=== PATIENT | female | born 1930 | race Caucasian/White ===

== ENCOUNTER 2016-10-12 19:42 | Inpatient (IN) | payer OTHER ==
--- NOTE | 2016-10-12 19:51 | EDPHY ---
H & P Stated Complaint: Partial list of the Differential diagnosis considered include but were not Time Seen by Provider: 10/12/16 19:42 HPI/ROS: CHIEF COMPLAINT: Fall HISTORY OF PRESENT ILLNESS: The patient is an 86-year-old female who fell down the stairs at her home today. This happened around 3:00 p.m. and her roommate and power of environmental attorney helped her back up the stairs to her room. The patient began complaining of right elbow shoulder and arm pain and they decided to call an ambulance. She denies head injury or neck injury. She does take Coumadin for history of atrial fibrillation. She also has a history of dementia. She denies having any pain other than her right arm and some in her right knee. She has been ambulatory. she did not lose consciousness. No visible head injury. REVIEW OF SYSTEMS: Constitutional: denies: chills, fever, recent illness, recent injury EENTM: denies: blurred vision, double vision, nose congestion Respiratory: denies: cough, shortness of breath Cardiac: denies: chest pain, irregular heart rate, lightheadedness, palpitations Gastrointestinal/Abdominal: denies: abdominal pain, diarrhea, nausea, vomiting, blood streaked stools Genitourinary: denies: dysuria, frequency, hematuria, pain Musculoskeletal: See HPI Skin: denies: lesions, rash, jaundice, bruising Neurological: denies: headache, numbness, paresthesia, tingling, dizziness, weakness Hematologic/Lymphatic: denies: blood clots, easy bleeding, easy bruising Immunologic/allergic: denies: HIV/AIDS, transplant EXAM: GENERAL: Well-appearing, well-nourished and in no acute distress. HEAD: Atraumatic, normocephalic. EYES: Pupils equal round and reactive to light, extraocular movements intact, sclera anicteric, conjunctiva are normal. ENT: TMs normal, nares patent, oropharynx clear without exudates. Moist mucous membranes. NECK: Normal range of motion, supple without lymphadenopathy or JVD. No midline tenderness LUNGS: Breath sounds clear to auscultation bilaterally and equal. No wheezes rales or rhonchi. HEART: Regular rate and rhythm without murmurs, rubs or gallops. ABDOMEN: Soft, nontender, normoactive bowel sounds. No guarding, no rebound. No masses appreciated. BACK: No CVA tenderness, no spinal tenderness, step-offs or deformities EXTREMITIES: Right arm with bruising over shoulder and wrist. No obvious deformity. NEUROLOGICAL: Cranial nerves II through XII grossly intact. Normal speech, normal gait. 5/5 strength, normal movement in all extremities, normal sensation PSYCH: Normal mood, normal affect. SKIN: Warm, dry, normal turgor, no visible rashes or lesions. Source: Patient, EMS, Old records Exam Limitations: Clinical condition - Personal History Tetanus Vaccine Date: < 10 YEARS - Medical/Surgical History Hx Asthma: No Hx Chronic Respiratory Disease: No Hx Diabetes: No Hx Cardiac Disease: Yes Hx Renal Disease: No Hx Cirrhosis: No Hx Alcoholism: No Hx HIV/AIDS: No Hx Splenectomy or Spleen Trauma: No Other PMH: hx heart attack, pacer, dementia and on namenda - Family History Significant Family History: Hypertension - Social History Smoking Status: Former smoker Alcohol Use: Sober Drug Use: None Constitutional: Initial Vital Signs Temperature (C) 37.2 C 10/12/16 19:50 Heart Rate 78 10/12/16 19:50 Respiratory Rate 15 10/12/16 19:50 Blood Pressure 118/78 10/12/16 19:50 O2 Sat (%) 94 10/12/16 19:50 O2 Delivery Mode Room Air Allergies/Adverse Reactions: No Known Allergies Allergy (Verified 10/12/16 19:53) Home Medications: Medication Instructions Recorded Cholecalciferol Vit D3 [Vitamin D3 1,000 units PO DAILY 11/01/12 (*)] Warfarin Sodium [Coumadin 5MG (*)] 2.5 mg PO WESA@18 11/01/12 Warfarin Sodium [Coumadin 5MG (*)] 5 mg PO SUMOTUTHFR@18 11/01/12 Memantine HCl [Namenda 5 mg (*)] 10 mg PO DAILY 08/07/15 Multivitamins [Multivitamin (*)] 1 each PO DAILY 08/07/15 Donepezil HCl [Aricept] 10 mg PO HS 02/21/16 Medical Decision Making - Diagnostics Imaging: X-ray: Right arm x-rays was obtained. I viewed the images myself on the PACS system. My interpretation of the images is: Positive for clavicle fracture and displaced distal ulnar fracture. The radiologist interpretation is pending. Results: CT scan of the head was obtained. The results of the study are negative. The study was read by Dr. Giang. I viewed the images myself on the PACS system. X-ray: Right knee and hip x-ray was obtained. I viewed the images myself on the PACS system. My interpretation of the images is: Negative. The radiologist interpretation is pending. Procedures: Procedure: Splint placement. A sugar-tong splint was applied. After application of the splint I returned and re-examined the patient. The splint was adequately immobilizing the joint and distal to the splint the patient's circulation and sensation was intact. Procedure: Splint placement. A sling splint was applied. After application of the splint I returned and re- examined the patient. The splint was adequately immobilizing the joint and distal to the splint the patient's circulation and sensation was intact. ED Course/Re-evaluation: 8:35 p.m. the patient has a clavicle fracture on the right and right ulnar fracture that may require repair. We will admit her to the trauma service. I spoke with Dr. Calhoun who will admit. There is also some concern about her living situation and being safe. Also she cannot ambulate because she uses a walker for ambulation. 9:25 p.m. I discussed the case with Dr. Guillermina MILLER who will review the images and consult during the admission. 9:35 p.m. Orthopedics called back and requested sugar-tong for the wrist. They will consult tomorrow. We also concern for possible syncopal event. The patient is unsure. EKG is been ordered by Dr. Calhoun. He will also consult hospitalist. Differential Diagnosis: Partial list of the Differential diagnosis considered include but were not limited to; clavicle fracture, wrist fracture, humerus fracture, head injury and although unlikely based on the history and physical exam, I also considered neck injury, thoracic injury, knee injury, hip injury. - Data Points Laboratory Results: Laboratory Results 10/12/16 19:46 10/12/16 19:46 Medications Given: Discontinued Medications Influenza Virus Vaccine (Fluzone High-Dose ) 0.5 ml IM .ONCE ONE Stop: 10/13/16 08:34 Last Admin: 10/13/16 11:04 Dose: 0.5 ml Departure - Departure Disposition: [facility] [place] Acute Clinical Impression: Clavicle fracture Qualifiers: Encounter type: initial encounter Clavicle location: lateral end Fracture type : closed Fracture alignment: displaced Laterality: right Qualified Code(s): S42.031A - Displaced fracture of lateral end of right clavicle, initial encounter for closed fracture Distal end of ulna fracture, closed Qualifiers: Encounter type: initial encounter Fracture morphology: unspecified fracture morphology Laterality: right Qualified Code(s): S52.601A - Unspecified fracture of lower end of right ulna, initial encounter for closed fracture Condition: Fair
[2016-10-12 19:57] LABS: % IMMATURE GRANULYOCYTES 0.9 % (0.0-1.1); ABSOLUTE IMMATURE GRANULOCYTES 0.12 10^3/uL (0.00-0.10); ADD DIFF? NO; ADD MORPH? NO; ADD SCAN? NO; ATYPICAL LYMPHOCYTE FLAG 0 (0-99); FRAGMENT RBC FLAG 0 (0-99); HEMATOCRIT 45.6 % (38.0-47.0); HEMOGLOBIN 15.6 g/dL (12.6-16.3); LEFT SHIFT FLG 10 (0-99); LIPEMIA HEMOLYSIS FLAG 90 (0-99); MEAN CELL HEMOGLOBIN 33.8 pg (27.9-34.1); MEAN CELL HEMOGLOBIN CONCENTR. 34.2 g/dL (32.4-36.7); MEAN CELL VOLUME 98.7 fL (81.5-99.8); MEAN PLATELET VOLUME 9.9 fL (8.7-11.7); PLATELET CLUMPS FLAG 10 (0-99); PLATELET COUNT 258 10^3/uL (150-400); RED BLOOD CELL COUNT 4.62 10^6/uL (4.18-5.33); RED CELL DISTRIBUTION WIDTH 12.8 % (11.5-15.2)
[2016-10-12 20:08] LABS: INR 2.38 (0.83-1.16); PROTIME(PATIENT) 26.2 SEC (12.0-15.0)
[2016-10-12 20:09] LABS: APTT 27.6 SEC (23.0-38.0)
[2016-10-12 20:12] LABS: ANION GAP 11 mEq/L (8-16); CARBON DIOXIDE 26 mEq/l (22-31); CHLORIDE 102 mEq/L (97-110); CREATININE 0.8 mg/dL (0.6-1.0); GLOMERULAR FILTRATION RATE > 60; GLUCOSE 143 mg/dL (70-100); POTASSIUM 4.3 mEq/L (3.5-5.2); SODIUM 139 mEq/L (134-144)
[2016-10-12] MEDS ORDERED: ONDANSETRON 4 MG/2 ML VIAL IVP PRN (20:59)
[2016-10-12] MEDS ORDERED: LR 1,000 ML IV SCH (21:00)
--- NOTE | 2016-10-12 21:06 | PDGENHP ---
History and Physical - Chief Complaint right elbow pain - History of Present Illness 86 y/o female unwitnessed fall from stairs at home. She has no memory prior to or subsequent to the fall, but denies LOC History Information - Allergies/Home Medication List Allergies/Adverse Reactions: No Known Allergies Allergy (Verified 10/12/16 19:53) Home Medications: Cholecalciferol Vit D3 [Vitamin D3 (*)] 1,000 units PO DAILY 11/01/12 [Last Taken 10/11/16] Warfarin Sodium [Coumadin 5MG (*)] 2.5 mg PO WESA@18 11/01/12 [Last Taken ] Warfarin Sodium [Coumadin 5MG (*)] 5 mg PO SUMOTUTHFR@11/01/12 [Last Taken ] Memantine HCl [Namenda 5 mg (*)] 10 mg PO DAILY 08/07/15 [Last Taken 10/11/16] Multivitamins [Multivitamin (*)] 1 each PO DAILY 08/07/15 [Last Taken 10/11/16] Donepezil HCl [Aricept] 10 mg PO HS 02/21/16 [Last Taken 10/11/16] I have personally reviewed and updated: medical history, social history, surgical history - Past Medical History atrial fibrillation - Surgical History Reports: pacemaker/AICD - Social History Smoking Status: Never smoked Alcohol Use: Sober Drug Use: None Review of Systems Constitutional: Reports: recent injury Cardiac: Reports: no symptoms Respiratory: Reports: no symptoms Gastrointestinal: Reports: no symptoms Genitourinary: Reports: no symptoms Muscolosketal: Reports: joint pain Neurological: Reports: other (memory loss/denies visual disturbances/ [place]/ hearing loss-prior syncopal episode/does not remember tripping prior to fall) Physical Exam Temp Pulse Resp BP Pulse Ox 37.2 C 74 16 117/69 94 10/12/16 19:50 10/12/16 20:33 10/12/16 20:33 10/12/16 20:33 10/12/16 20:33 Constitutional: other (mild distress) Eyes: PERRL, EOMI Ears, Nose, Mouth, Throat: ears appear normal Cardiovascular: irregularly irregular, other (Left subclavian pacemaker) Peripheral Pulses: 1+: dorsalis-pedis (R), dorsalis-pedis (L), 4+: carotid (R), carotid (L), femoral (R), femoral (L) Respiratory: no respiratory distress, no rales or rhonchi, clear to auscultation Gastrointestinal: soft, non-tender abdomen Skin: warm, normal color Musculoskeletal: joint tenderness, other (tender right elbow without deformity/ tenderness with swell over right distal ulnar/radial pulse +2/ulnar +1) Neurologic: sensation intact bilaterally, CN II-XII Intact, other (oriented to place and situation/unable to recite correct date) Psychiatric: interacting appropriately, not anxious, poor memory Lab Data & Imaging Review 10/12/16 19:46 10/12/16 19:46 WBC 14.00 10^3/uL (3.80-9.50) H 10/12/16 19:46 RBC 4.62 10^6/uL (4.18-5.33) 10/12/16 19:46 Hgb 15.6 g/dL (12.6-16.3) 10/12/16 19:46 Hct 45.6 % (38.0-47.0) 10/12/16 19:46 MCV 98.7 fL (81.5-99.8) 10/12/16 19:46 MCH 33.8 pg (27.9-34.1) 10/12/16 19:46 MCHC 34.2 g/dL (32.4-36.7) 10/12/16 19:46 RDW 12.8 % (11.5-15.2) 10/12/16 19:46 Plt Count 258 10^3/uL (150-400) 10/12/16 19:46 MPV 9.9 fL (8.7-11.7) 10/12/16 19:46 Neut % (Auto) 88.3 % (39.3-74.2) H 10/12/16 19:46 Lymph % (Auto) 2.1 % (15.0-45.0) L 10/12/16 19:46 [place]y % (Auto) 8.3 % (4.5-13.0) 10/12/16 19:46 Eos % (Auto) 0.0 % (0.6-7.6) L 10/12/16 19:46 Baso % (Auto) 0.4 % (0.3-1.7) 10/12/16 19:46 Nucleat RBC Rel Count 0.0 % (0.0-0.2) 10/12/16 19:46 Absolute Neuts (auto) 12.37 10^3/uL (1.70-6.50) H 10/12/16 19:46 Absolute Lymphs (auto) 0.30 10^3/uL (1.00-3.00) L 10/12/16 19:46 Absolute Monos (auto) 1.16 10^3/uL (0.30-0.80) H 10/12/16 19:46 Absolute Eos (auto) 0.00 10^3/uL (0.03-0.40) L 10/12/16 19:46 Absolute Basos (auto) 0.05 10^3/uL (0.02-0.10) 10/12/16 19:46 Absolute Nucleated RBC 0.00 10^3/uL (0-0.01) 10/12/16 19:46 Immature Gran % 0.9 % (0.0-1.1) 10/12/16 19:46 Immature Gran # 0.12 10^3/uL (0.00-0.10) H 10/12/16 19:46 PT 26.2 SEC (12.0-15.0) H 10/12/16 19:46 INR 2.38 (0.83-1.16) H 10/12/16 19:46 APTT 27.6 SEC (23.0-38.0) 10/12/16 19:46 Sodium 139 mEq/L (134-144) 10/12/16 19:46 Potassium 4.3 mEq/L (3.5-5.2) 10/12/16 19:46 Chloride 102 mEq/L (97-110) 10/12/16 19:46 Carbon Dioxide 26 mEq/l (22-31) 10/12/16 19:46 Anion Gap 11 mEq/L (8-16) 10/12/16 19:46 BUN 26 mg/dL (7-23) H 10/12/16 19:46 Creatinine 0.8 mg/dL (0.6-1.0) 10/12/16 19:46 Estimated GFR > 60 10/12/16 19:46 Glucose 143 mg/dL (70-100) H 10/12/16 19:46 Calcium 10.0 mg/dL (8.5-10.4) 10/12/16 19:46 Imaging Review: right distal ulnar fracture right distal clavicle fx/non-displaced Interpretation: a-fib Assessment & Plan Assessment: 86 y/o female fall from stairs/possible syncope comorbidities including A-fib, anticoagulation, pacemaker, dementia Clavicle fracture (Acute) Distal end of ulna fracture, closed (Acute) Will admit for cardiac monitoring/comfort measures Ortho consult has been requested from Dr. Sarmiento will hold Coumadin pending Ortho eval./if surgery needed will need to reverse anticoagulation Hospitalist consult requested Yi Calhoun MD, FACS
--- NOTE | 2016-10-12 22:12 | CPEKG ---
Heart Rate: 78 RR Interval: 769 QRSD Interval: 138 QT Interval: 412 QTC Interval: 470 QRS Bayside: -70 T Wave Bayside: 109 EKG Severity - ABNORMAL ECG - EKG Impression: AFIB/FLUTTER AND VENTRICULAR-PACED RHYTHM EKG Impression: No significant change from February 21, 2016 Electronically Signed By: Daniel Gross 13-Oct-2016 14:54:09
--- NOTE | 2016-10-12 22:53 | PDGENHP ---
History and Physical - Chief Complaint fall, possible syncope - History of Present Illness Patient is an 86 year old female with history atrial fibrillation, diastolic CHF and valvular heart disease, moderate pulmonary hypertension and mild dementia who presents to the ED after a fall from home. Patient states she was attempting to walk down a flight of stairs in her home when she fell down the whole flight. She states she does not recall the fall, but does remember being at on the floor at the bottom of the stairs, where she was found by her roommate. She denies any preceding dizziness, chest pain or palpitations. She also denies any recent fevers, chills, cough, abdominal pain, nausea, vomiting or diarrhea; reports normal appetite and bowel movements. On arrival to the ED, patient was afebrile and hemodynamically stable. X-rays revealed acute R clavicular and R ulnar fractures. CT head did not reveal any acute intracranial abnormalities. Labs also revealed mild leukocytosis, normal BMP, therapeutic INR. EKG showed her afib with a paced rhythm. She was admitted to the trauma service and hospitalist has been consulted for management of her chronic medical conditions. History Information - Allergies/Home Medication List Allergies/Adverse Reactions: No Known Allergies Allergy (Verified 10/12/16 19:53) Home Medications: Cholecalciferol Vit D3 [Vitamin D3 (*)] 1,000 units PO DAILY 11/01/12 [Last Taken 10/11/16] Warfarin Sodium [Coumadin 5MG (*)] 2.5 mg PO WESA@18 11/01/12 [Last Taken ] Warfarin Sodium [Coumadin 5MG (*)] 5 mg PO SUMOTUTHFR@18 11/01/12 [Last Taken ] Memantine HCl [Namenda 5 mg (*)] 10 mg PO DAILY 08/07/15 [Last Taken 10/11/16] Multivitamins [Multivitamin (*)] 1 each PO DAILY 08/07/15 [Last Taken 10/11/16] Donepezil HCl [Aricept] 10 mg PO HS 02/21/16 [Last Taken 10/11/16] I have personally reviewed and updated: family history, medical history, social history, surgical history - Past Medical History Additional medical history: atrial fibrillation s/p PPM on systemic anticoagulation. diastolic/valvular heart failure, severe TR. moderate pulmonary hypertension, 40 mmhg in 02/2016. mild cognitive impairment/dementia - Surgical History Additional surgical history: hysterectomy. PPM. cholecystectomy - Family History Positive for: non-pertinent - Social History Smoking Status: Former smoker Alcohol Use: Sober Drug Use: None Additional social history: Patient lives in [place] with a roommate, is independent in ADLs, walks without assistance at baseline. Former missionary worker. Review of Systems ROS: 10pt was reviewed & negative except for what was stated in HPI & below Physical Exam Temp Pulse Resp BP Pulse Ox 37.2 C 74 16 111/68 93 10/12/16 21:41 10/12/16 21:41 10/12/16 21:41 10/12/16 21:41 10/12/16 21:41 Constitutional: no apparent distress, appears nourished, not in pain Eyes: PERRL, anicteric sclera, EOMI Ears, Nose, Mouth, Throat: moist mucous membranes, hearing normal, ears appear normal, no oral mucosal ulcers Cardiovascular: regular rate and rhythym, systolic murmur, pulses symmetric bilaterally, No JVD, No edema Peripheral Pulses: 2+: dorsalis-pedis (R), dorsalis-pedis (L) Respiratory: no respiratory distress, no rales or rhonchi, clear to auscultation Gastrointestinal: normoactive bowel sounds, soft, non-tender abdomen, no palpable masses, No tenderness, No guarding, No rebound Genitourinary: no bladder fullness, no bladder tenderness Skin: warm, normal color, no rashes or abrasions, no fluctuance, no induration, No mottled Musculoskeletal: no joint effusions, pain with ROM (of R upper extremity) Neurologic: AAOx3, sensation intact bilaterally, CN II-XII Intact, No weakness, No numbness, No facial droop Psychiatric: interacting appropriately, not anxious, not encephalopathic, thought process linear Lab Data & Imaging Review 10/12/16 19:46 10/12/16 19:46 WBC 14.00 10^3/uL (3.80-9.50) H 10/12/16 19:46 RBC 4.62 10^6/uL (4.18-5.33) 10/12/16 19:46 Hgb 15.6 g/dL (12.6-16.3) 10/12/16 19:46 Hct 45.6 % (38.0-47.0) 10/12/16 19:46 MCV 98.7 fL (81.5-99.8) 10/12/16 19:46 MCH 33.8 pg (27.9-34.1) 10/12/16 19:46 MCHC 34.2 g/dL (32.4-36.7) 10/12/16 19:46 RDW 12.8 % (11.5-15.2) 10/12/16 19:46 Plt Count 258 10^3/uL (150-400) 10/12/16 19:46 MPV 9.9 fL (8.7-11.7) 10/12/16 19:46 Neut % (Auto) 88.3 % (39.3-74.2) H 10/12/16 19:46 Lymph % (Auto) 2.1 % (15.0-45.0) L 10/12/16 19:46 Mckenzie % (Auto) 8.3 % (4.5-13.0) 10/12/16 19:46 Eos % (Auto) 0.0 % (0.6-7.6) L 10/12/16 19:46 Baso % (Auto) 0.4 % (0.3-1.7) 10/12/16 19:46 Nucleat RBC Rel Count 0.0 % (0.0-0.2) 10/12/16 19:46 Absolute Neuts (auto) 12.37 10^3/uL (1.70-6.50) H 10/12/16 19:46 Absolute Lymphs (auto) 0.30 10^3/uL (1.00-3.00) L 10/12/16 19:46 Absolute Monos (auto) 1.16 10^3/uL (0.30-0.80) H 10/12/16 19:46 Absolute Eos (auto) 0.00 10^3/uL (0.03-0.40) L 10/12/16 19:46 Absolute Basos (auto) 0.05 10^3/uL (0.02-0.10) 10/12/16 19:46 Absolute Nucleated RBC 0.00 10^3/uL (0-0.01) 10/12/16 19:46 Immature Gran % 0.9 % (0.0-1.1) 10/12/16 19:46 Immature Gran # 0.12 10^3/uL (0.00-0.10) H 10/12/16 19:46 PT 26.2 SEC (12.0-15.0) H 10/12/16 19:46 INR 2.38 (0.83-1.16) H 10/12/16 19:46 APTT 27.6 SEC (23.0-38.0) 10/12/16 19:46 Sodium 139 mEq/L (134-144) 10/12/16 19:46 Potassium 4.3 mEq/L (3.5-5.2) 10/12/16 19:46 Chloride 102 mEq/L (97-110) 10/12/16 19:46 Carbon Dioxide 26 mEq/l (22-31) 10/12/16 19:46 Anion Gap 11 mEq/L (8-16) 10/12/16 19:46 BUN 26 mg/dL (7-23) H 10/12/16 19:46 Creatinine 0.8 mg/dL (0.6-1.0) 10/12/16 19:46 Estimated GFR > 60 10/12/16 19:46 Glucose 143 mg/dL (70-100) H 10/12/16 19:46 Calcium 10.0 mg/dL (8.5-10.4) 10/12/16 19:46 Visualized and Interpreted imaging results: Yes Interpretation: CT head: severe atrophy, no acute intracranial abnormality. x- ray: R distal clavicular and ulnar fractures Visualized and Interpreted EKG results: Yes EKG additional interpertation: V paced rhythm, underlying afib Assessment & Plan Assessment: Patient is an 86 year old female with Afib, valvular heart disease, mild dementia who presents to the ED after a fall with possible syncope. ED work up reveals acute R clavicular and ulnar fractures. Plan: # fall According to patient's description of the fall, it sounds to have been mechanical in nature, but she cannot remember all the details surrounding the event. She denies any cardiac or respiratory symptoms, exam is nonfocal and labs are largely unremarkable, except for mild dehydration and leukocytosis. EKG shows paced rhythm. Will trend cardiac enzymes to r/o acs, check TTE and have patient's pacemaker interrogated for any corresponding arrhythmia. Will also check UA to r/o infectious etiology. # leukocytosis Likely reactive in setting of acute fractures, but will check UA. Patient denies any respiratory symptoms. No indication for antibiotics at this time, cont to trend CBC. # acute R clavicular and ulnar fractures Will defer management to surgery and orthopedic services. Pain control and pt/ ot when appropriate. # atrial fibrillation EKG shows rate controlled AFib with v-pacing. It does not appear patient is on any rate controlling and none seem indicated based on presenting HR. INR is therapeutic, will need reversal if surgery is planned for fracture repairs. # chronic diastolic/valvular CHF Patient appears to be slightly hypovolemic on exam, which may have contributed to her fall. Agree with gentle IV hydration, with close monitoring of volume status. Will f/u TTE. # dementia Continue home dementia meds. # dispo: admit to inpatient service for likely > 2 [place] stay # gen: NPO DVT ppx: on coumadin DNR/DNI --> as expressed by patient on my evaluation
[2016-10-12] MEDS: MEMANTINE HCL 5 MG TAB PO SCH (23:17)
[2016-10-12] MEDS: DONEPEZIL HCL 5 MG TAB PO SCH (23:42)
[2016-10-13 01:52] LABS: COLOR YELLOW; LEUKOCYTE ESTERASE,URINE 2+ (NEGATIVE); NITRITE,URINE NEGATIVE (NEGATIVE)
[2016-10-13 01:55] LABS: BACTERIA TRACE /hpf (NONE SEEN); MUCUS 3+ /lpf (NONE-1+)
[2016-10-13 05:37] LABS: % IMMATURE GRANULYOCYTES 0.5 % (0.0-1.1); ABSOLUTE IMMATURE GRANULOCYTES 0.05 10^3/uL (0.00-0.10); ADD DIFF? NO; ADD MORPH? NO; ADD SCAN? NO; ATYPICAL LYMPHOCYTE FLAG 0 (0-99); FRAGMENT RBC FLAG 0 (0-99); HEMATOCRIT 42.3 % (38.0-47.0); HEMOGLOBIN 14.4 g/dL (12.6-16.3); LEFT SHIFT FLG 10 (0-99); LIPEMIA HEMOLYSIS FLAG 90 (0-99); MEAN CELL HEMOGLOBIN 33.2 pg (27.9-34.1); MEAN CELL VOLUME 97.5 fL (81.5-99.8); MEAN PLATELET VOLUME 9.9 fL (8.7-11.7); PLATELET CLUMPS FLAG 10 (0-99); PLATELET COUNT 206 10^3/uL (150-400); RED BLOOD CELL COUNT 4.34 10^6/uL (4.18-5.33); RED CELL DISTRIBUTION WIDTH 12.8 % (11.5-15.2)
[2016-10-13 05:48] LABS: INR 2.07 (0.83-1.16); PROTIME(PATIENT) 23.4 SEC (12.0-15.0)
[2016-10-13 05:49] LABS: APTT 24.4 SEC (23.0-38.0)
[2016-10-13 05:54] LABS: ANION GAP 9 mEq/L (8-16); CALCIUM 9.3 mg/dL (8.5-10.4); CARBON DIOXIDE 20 mEq/l (22-31); CHLORIDE 106 mEq/L (97-110); CREATININE 0.6 mg/dL (0.6-1.0); GLOMERULAR FILTRATION RATE > 60; GLUCOSE 101 mg/dL (70-100); POTASSIUM 4.5 mEq/L (3.5-5.2); SODIUM 135 mEq/L (134-144)
[2016-10-13 06:04] LABS: TROPONIN I 0.022 ng/mL (0-0.034)
--- NOTE | 2016-10-13 06:59 | TRAUMAPN ---
Assessment/Plan: s/p unwitnessed fall-syncope vs. mechanical fall a-fib/pacemaker anticoagulation dementia hx. syncopal episode right distal ulnar fx-close right distal clavicle [id number] Rec: Ortho evaluation pending INR remains >2 will require FFP if surgery recommended today continue cardiac monitoring/pacer interrogation pending S MD Lj< FACS Objective: Vital Signs Temp Pulse Resp BP Pulse Ox 36.9 C 80 16 115/66 93 10/12/16 22:30 10/13/16 04:00 10/12/16 21:41 10/13/16 04:00 10/13/16 04:00 Laboratory Results 10/13/16 05:20 10/13/16 05:20 10/12/16 10/13/16 10/14/16 05:59 05:59 05:59 Intake Total 550 Output Total 100 Balance 450 PT 23.4 SEC (12.0-15.0) H 10/13/16 05:20 INR 2.07 (0.83-1.16) H 10/13/16 05:20 - C-Spine Clearance Cervical Spine Cleared: Yes Provider who Cleared Cervical Spine: LJ Physical Exam - Physical Exam General Appearance: alert, no apparent distress, other (mildly confused but re- orients quickly) Neck: full range of motion Respiratory: lungs clear Cardiac/Chest: regular rate, rhythm Peripheral Pulses: 1+: dorsalis-pedis (R), dorsalis-pedis (L) Abdomen: non-tender, soft Extremities: other (volar splint right forearm distal NV intact) Neuro/Psych: other (initially thought she was in her room at home, then realized she was still in the hospital/September 2017)
[2016-10-13] MEDS ORDERED: FLU VACC TS 2016-17(65YR+)/PF 0.5 ML SYR (FLUZONE HIGH DOSE) IM ONE ×2 (08:33→11:03)
[2016-10-13] MEDS: MEMANTINE HCL 5 MG TAB PO SCH ×2 (08:37→20:29)
--- NOTE | 2016-10-13 10:55 | HOSPPROG ---
Hospitalist Progress Note Assessment/Plan: # fall/syncope - ppm interrogation neg, trops neg - cont tele, echo pending # a-fib/ppm - on warfarin, rate controlled # R ulnar/clavicle fx - likely non-operative, but ortho eval pending # dementia - home meds # chronic diastolic/valvular CHF - echo pending # DNR ## new pt to me chart reviewed XR's reviewed Subjective: no acute events; not clear if she remembers the fall Objective: Vital Signs Temp Pulse Resp BP Pulse Ox 36.9 C 18 L 24 H 103/78 92 10/12/16 22:30 10/13/16 08:00 10/13/16 08:00 10/13/16 08:00 10/13/16 08:00 Laboratory Results 10/13/16 05:20 10/13/16 05:20 10/12/16 10/13/16 10/14/16 05:59 05:59 05:59 Intake Total 550 Output Total 100 Balance 450 PT 23.4 SEC (12.0-15.0) H 10/13/16 05:20 INR 2.07 (0.83-1.16) H 10/13/16 05:20 - Physical Exam Constitutional: no apparent distress, appears nourished Cardiovascular: regular rate and rhythym, systolic murmur, No irregularly irregular, No diastolic murmur Respiratory: no respiratory distress, no rales or rhonchi, clear to auscultation Gastrointestinal: normoactive bowel sounds, soft, non-tender abdomen, no palpable masses ICD10 Worksheet Patient Problems: Problems Problem Status Onset Clavicle fracture Acute Distal end of ulna fracture, closed Acute Atrial fibrillation Acute Cellulitis of right upper extremity Acute Elevated troponin Acute Weakness generalized Acute
--- NOTE | 2016-10-13 11:30 | ECHO ---
[id number] + + [address] : : [place] [address] : : [phone] + + Adult Echocardiographic Report + ---+ :Name: KARLOS WILSON Shyam Date: 10/13/2016 07:28 AM : : Hospital Admission Number: [id number] Location: 252: :: 1930 Gender: Female Height: 65 in : :Age: 86 yrs Race: WH Weight: 125 lb : :Reason For Study: Syncope : : BSA: 1.6 meters2 : + ---+ MMode/2D Measurements \T\ Calculations IVSd: 0.73 cm LVIDd: 4.5 cm FS: 27.2 % Ao root diam: LVPWd: 0.97 cm LVIDs: 3.3 cm EDV(Teich): 94.5 ml 3.0 cm ESV(Teich): 44.3 ml LA dimension: EF(Teich): 53.1 % 5.1 cm LVOT diam: 2.1 cmLVLd ap4: 5.8 cm SV(MOD-sp4): LVOT area: EDV(MOD-sp4): 19.0 ml 3.3 cm2 28.0 ml LVLs ap4: 4.7 cm ESV(MOD-sp4): 9.0 ml EF(MOD-sp4): 67.9 % Normal Measurement Values: + + :LVIDd (3.5-5.7cm) IVSd (0.6-1.1cm) LVPWd (0.6-1.1cm) Aortic Root (2.0-3.7cm)Left Atrium (1.5-4.0cm): :LV Vol(d) (76-115ml) LV Vol(s) (29-48ml) Ejec Fraction (50-65%)PV Dimas (0.6- 1.2m/s) TV Dimas (0.4-1.0m/s) : :MV E Dimas (0.8-1.0m/s)MV A Dimas (0.3-1.0m/s)LVOT Dimas (0.7-1.2m/s) Asc Ao Dimas ( 0.9-1.8m/s) : + + Doppler Measurements \T\ Calculations MV E max dimas: MV V2 max: Ao mean PG: LV V1 mean P.9 cm/sec 81.4 cm/sec 16.6 mmHg 0.00 mmHg MV max PG: Ao V2 mean: LV V1 mean: 2.7 mmHg 196.5 cm/sec 31.5 cm/sec MV V2 mean: Ao V2 VTI: 53.3 cm LV V1 VTI: 8.6 cm 43.7 cm/sec RAKEL(I,D): 0.54 cm2 MV mean P.96 mmHg MV V2 VTI: 11.7 cm MVA(VTI): 2.5 cm2 MR max dimas: SV(LVOT): 28.7 ml TR max dimas: 515.8 cm/sec 260.6 cm/sec MR max PG: TR max P.4 mmHg 27.2 mmHg RAP systole: 10.0 mmHg RVSP(TR): 37.2 mmHg Left Ventricle The left ventricle is normal in size. There is mild concentric left ventricular hypertrophy. Left ventricular systolic function is normal. Ejection Fraction = 65-70%. No regional wall motion abnormalities noted. Right Ventricle The right ventricle is normal in size and function. There is a pacemaker lead in the right ventricle. Atria The left atrium is severely dilated. The right atrium is severely dilated. The interatrial septum is intact with no evidence for an atrial septal defect. Mitral Valve There is moderate mitral annular calcification. There is no evidence of mitral valve prolapse. There is no mitral valve stenosis. There is mild to moderate mitral regurgitation. Tricuspid Valve Normal tricuspid valve. There is severe tricuspid regurgitation. Right ventricular systolic pressure is normal. Aortic Valve The aortic valve is trileaflet. The aortic valve opens well. Mild/moderate AV calcification. Mild valvular aortic stenosis. AV max PG is 25mmHG. AV mean PG is 17mmHG. There is no aortic insufficiency. Pulmonic Valve The pulmonic valve is normal in structure and function. Trace pulmonic valvular regurgitation. Great Vessels The aortic root is normal size. Pericardium/Pleural There is no pericardial effusion. Conclusion A complete two-dimensional transthoracic echocardiogram was performed (2D, M-mode, Doppler and color flow Doppler). Compared to prior study, there is no significant change. Left ventricular systolic function is normal. There is mild concentric left ventricular hypertrophy. Ejection Fraction = 65-70%. There is a pacemaker lead in the right ventricle. The left atrium is severely dilated. The right atrium is severely dilated. There is moderate mitral annular calcification. There is mild to moderate mitral regurgitation. There is severe tricuspid regurgitation. Right ventricular systolic pressure is normal. Mild/moderate AV calcification. Mild valvular aortic stenosis. AV max PG is 25mmHG. AV mean PG is 17mmHG. Trace pulmonic valvular regurgitation. Compared to prior study, there is no significant change. Final Reading Physician: Rose Montana signed on 10/13/2016 11:29 AM Ordering Physician: Yoli Strauss Performed By: Josseline Macdonald RDCS
--- NOTE | 2016-10-13 12:04 | GCON ---
[f rep st] CONSULTATION CHIEF COMPLAINT: Right shoulder pain, right forearm pain, status post fall on 10/12/2016. HISTORY OF PRESENT ILLNESS: The patient is a pleasant 86-year-old female who presented to the [facility] Emergency Department on 10/12/2016, after a fall at home. She states she was attempting to walk down a flight of stairs in her home, when she fell down, recalling that she fell down the entire flight of stairs. The patient states she does not recall the fall, but does remember being on the floor at the bottom of the stairs, where she was found by her roommate. She denies any preceding dizziness, CP, SOB or palpitations. She also denies any recent illness, fevers, chills, nausea, vomiting, abdominal pain. Upon arrival to the ED, the patient again stated that she had acute right shoulder and right forearm pain. At that time, radiographs were taken showing right clavicle and ulnar fractures. She was also worked up with CT head , which did not reveal any acute intracranial abnormalities. Today, the patient states she has had no significant pain, and states she is tolerating her medications and diet well. She reports she has remained in her coaptation splint of her right ulna, as well as a sling for comfort for her right clavicle. She reports she has been compliant with activity restrictions outlined in the ED, including no significant pushing, pulling, lifting or carrying with the affected upper extremity. She denies any new onset headache, dizziness, syncope, chest pain, shortness of breath, abdominal pain or bilateral calf pain. She has no additional concerns or complaints at this time. PAST MEDICAL HISTORY: This is significant for atrial fibrillation, and patient is on systemic anticoagulation with Warfarin, diastolic/valvular heart failure, pulmonary hypertension and possible mild cognitive impairment/dementia. PAST SURGICAL HISTORY: This is significant for hysterectomy, cholecystectomy, implanted pacemaker. MEDICATIONS: Warfarin, Namenda, multivitamins, Aricept, vitamin D3. ALLERGIES: No known drug allergies. SOCIAL HISTORY: Patient states no current tobacco use, but does state she is a former smoker. She notes no current alcohol consumption. Patient denies any recreational drug use. The patient notes that she lives independently at home, but does have a roommate. 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 FAMILY HISTORY: No significant contributory family history is reported today. REVIEW OF SYSTEMS: A 10-point review of systems was reviewed today with no additional concerns, complaints, or abnormal findings noted in the HPI or PMH. PHYSICAL EXAMINATION: VITAL SIGNS: BP 114/62, heart rate 84 bpm, respiratory rate 24, O2 sats 92% on room air. GENERAL: The patient is alert, and NAD. HEENT: NC/AT. EOMI. PERRLA. Ears and nares are patent and without discharge. OP is clear. NECK: NTTP, supple. No midline TTP noted. No cervical LAD noted. CARDIOVASCULAR: RRR. RESPIRATORY: CTAB, no W/C/R. No increased WOB noted. ABDOMEN: Soft. NT/ND. No HSM noted. MUSCULOSKELETAL: Examination of the right upper extremity reveals a TTP over the distal clavicle, without mild crepitus. No significant skin tenting is noted. The patient is intact to light touch sensation, anterior to posterior deltoid. Left arm compartments are supple. Forearm compartments are supple. TTP of the distal ulna is noted with mild crepitus. The remainder of the right hand exam reveals NTTP over the distal radius. Patient moves digits 1 through 5 WNL. Coaptation sugar-tong splint in place. Capillary refill is less than 2 seconds in the finger pulse. The patient is intact to light touch sensation distally, and equal bilaterally. SKIN: Please see above dictation concerning right upper extremity. Otherwise, warm, normal color, no rashes or abrasions noted. NEUROLOGIC: A and O x3. No N/T noted. PSYCHIATRIC: Pleasant and cooperative with today's exam. Speech is noted to be full and fluent. RADIOGRAPHS: Two views of the right clavicle are reviewed today showing a mildly displaced distal clavicle fracture. No humeral head or neck fracture or dislocation is noted. Appropriate anatomic alignment of humerus. Three views of the right wrist are reviewed today showing an oblique, slightly angulated and mildly displaced distal ulnar metaphyseal fracture. No additional fracture or dislocation was noted. ASSESSMENT: Right distal clavicle fracture, right ulnar fracture. PLAN: This patient's case and radiographs were reviewed with Dr. Sarmiento. At this time, the patient will continue her current cardiac evaluation. Treatment options were discussed with the patient today, including the potential role of surgical intervention. At this time, we will continue to follow this patient, as she would be currently a high risk for surgery given her current INR, and pending cardiac workup. Potential surgical options will again be evaluated once the patient is medically stable. All the patient's questions have been answered today, and her concerns addressed. She has relayed her understanding of the current care plan and education presented today. This plan has been reviewed with Dr. Sarmiento. Thank you very much for this consultation and we will continue to follow the patient while she remains at [facility]. /[id number]/MODL MTDD
--- NOTE | 2016-10-13 15:32 | SOAPPROG ---
Downtime Inpatient MD Late Entry SOAP Note: Case discussed with Dr. Saldivar. Trauma service will sign off/transfer patient to the medical service while patient completes her cardiac/medical work up Please reconsult prn. Yi Calhoun MD, FACS
--- NOTE | 2016-10-13 17:15 | SOAPPROG ---
SOAP Progress Note Assessment/Plan: Assessment/Plan: #86 yo female s/p fall R ulnar fracture, right clavicle fx -non-operative at this time per Dr. Sarmiento. -Cont coaptation splint and sling -Pt will remain NWB on RUE, no significant pushing, pulling, twisting or carrying -Cont/PT/OT -Cont current PO pain management as tolerated -Pt will f/u w/ Dr. Sarmiento as an outpatient for repeat radiographs and assessment in 10 days 10/13/16 17:12 Objective: Vital Signs Temp Pulse Resp BP Pulse Ox 36.9 C 89 23 H 123/69 H 93 10/12/16 22:30 10/13/16 12:00 10/13/16 12:00 10/13/16 12:00 10/13/16 12:00 Laboratory Results 10/13/16 05:20 10/13/16 05:20 10/12/16 10/13/16 10/14/16 05:59 05:59 05:59 Intake Total 550 Output Total 100 Balance 450 PT 23.4 SEC (12.0-15.0) H 10/13/16 05:20 INR 2.07 (0.83-1.16) H 10/13/16 05:20 ICD10 Worksheet Patient Problems: Problems Problem Status Onset Clavicle fracture Acute Distal end of ulna fracture, closed Acute Atrial fibrillation Acute Cellulitis of right upper extremity Acute Elevated troponin Acute Weakness generalized Acute
[2016-10-13 18:22] LABS: % IMMATURE GRANULYOCYTES 0.5 % (0.0-1.1); ABSOLUTE IMMATURE GRANULOCYTES 0.05 10^3/uL (0.00-0.10); ADD DIFF? NO; ADD MORPH? NO; ADD SCAN? NO; ATYPICAL LYMPHOCYTE FLAG 0 (0-99); FRAGMENT RBC FLAG 0 (0-99); HEMATOCRIT 45.5 % (38.0-47.0); HEMOGLOBIN 15.3 g/dL (12.6-16.3); LEFT SHIFT FLG 10 (0-99); LIPEMIA HEMOLYSIS FLAG 80 (0-99); MEAN CELL HEMOGLOBIN 32.7 pg (27.9-34.1); MEAN CELL HEMOGLOBIN CONCENTR. 33.6 g/dL (32.4-36.7); MEAN CELL VOLUME 97.2 fL (81.5-99.8); MEAN PLATELET VOLUME 9.6 fL (8.7-11.7); PLATELET CLUMPS FLAG 0 (0-99); PLATELET COUNT 210 10^3/uL (150-400); RED BLOOD CELL COUNT 4.68 10^6/uL (4.18-5.33); RED CELL DISTRIBUTION WIDTH 13.1 % (11.5-15.2)
[2016-10-13] MEDS: WARFARIN SODIUM 5 MG TAB PO SCH (18:23)
[2016-10-13] MEDS: DONEPEZIL HCL 5 MG TAB PO SCH (20:28)
--- NOTE | 2016-10-14 05:38 | SOAPPROG ---
SOAP Progress Note Assessment/Plan: Assessment/Plan: #86 yo female s/p fall R ulnar fracture, right clavicle fx -non-operative per Dr. Sarmiento. -Cont coaptation splint and sling -Pt will remain NWB on RUE, no significant pushing, pulling, twisting or carrying -Cont/PT/OT -SCDs for VTE mechanical prophylaxis -Warfarin for VTE chemoprophylaxis per admitting -Cont current PO pain management as tolerated -Pt will f/u w/ Dr. Sarmiento as an outpatient for repeat radiographs and assessment in 10 days 10/14/16 05:37 Subjective: Pt seen at bedside this am, awoken for exam. No complaints of significant pain at this time. Pt states she is tolerating his diet and medications well. She has no additional concerns or complaints at this time. Objective: Vital Signs Temp Pulse Resp BP Pulse Ox 37.1 C 84 24 H 123/70 H 94 10/14/16 04:00 10/13/16 23:51 10/14/16 04:00 10/14/16 04:00 10/14/16 04:00 Laboratory Results 10/13/16 17:50 10/13/16 05:20 10/12/16 10/13/16 10/14/16 05:59 05:59 05:59 Intake Total 550 400 Output Total 100 50 Balance 450 350 PT 23.4 SEC (12.0-15.0) H 10/13/16 05:20 INR 2.07 (0.83-1.16) H 10/13/16 05:20 Pt seen at bedside, awoken for exam. NAD, pleasant and cooperative with exam. Shoulder immobilizer and coaptation splint in place, neurovascularly intact with application. A&Ox3, appropriate mood and affect. Post calves NTTP, no palpable vascular cords, neg Xavi's bilat. DNVI BLE. ICD10 Worksheet Patient Problems: Problems Problem Status Onset Clavicle fracture Acute Distal end of ulna fracture, closed Acute Atrial fibrillation Acute Cellulitis of right upper extremity Acute Elevated troponin Acute Weakness generalized Acute
[2016-10-14] MEDS: MEMANTINE HCL 5 MG TAB PO SCH ×2 (08:23→21:28)
--- NOTE | 2016-10-14 09:53 | HOSPPROG ---
Hospitalist Progress Note Assessment/Plan: # fever - check CXR, UCx, BCx - check labs # L facial droop - unclear chronicity - check MRI # fall/syncope - ppm interrogation neg, trops neg - cont tele, echo with severe TR, dilated atria # a-fib/ppm - on warfarin, rate controlled - check INR # R ulnar/clavicle fx - non-operative; NWB RUE; f/u Dr Sarmiento 10 days # dementia - home meds # chronic diastolic/valvular CHF # deconditioning/weakness - PT/OT - will need SNF # DNR ## echo reviewed chart (ortho consult) reviewed Subjective: had a fever overnight; has an ongoing cough Objective: Vital Signs Temp Pulse Resp BP Pulse Ox 37.6 C 85 29 H 123/74 H 96 10/14/16 08:00 10/14/16 08:00 10/14/16 08:00 10/14/16 08:00 10/14/16 08:00 Laboratory Results 10/13/16 17:50 10/13/16 05:20 10/13/16 10/14/16 10/15/16 05:59 05:59 05:59 Intake Total 550 1059 Output Total 100 50 Balance 450 1009 PT 23.4 SEC (12.0-15.0) H 10/13/16 05:20 INR 2.07 (0.83-1.16) H 10/13/16 05:20 - Physical Exam Constitutional: no apparent distress, appears nourished Cardiovascular: regular rate and rhythym, systolic murmur, No irregularly irregular Respiratory: no respiratory distress, rhonchi (mild, diffuse), No reduced air movement, No expiratory wheeze, No inspiratory crackles Gastrointestinal: normoactive bowel sounds, soft, non-tender abdomen, no palpable masses ICD10 Worksheet Patient Problems: Problems Problem Status Onset Cellulitis of right upper extremity Acute Weakness generalized Acute Atrial fibrillation Acute Elevated troponin Acute Clavicle fracture Acute Distal end of ulna fracture, closed Acute
[2016-10-14 10:48] LABS: % IMMATURE GRANULYOCYTES 0.5 % (0.0-1.1); ABSOLUTE IMMATURE GRANULOCYTES 0.07 10^3/uL (0.00-0.10); ADD DIFF? NO; ADD MORPH? NO; ADD SCAN? NO; ATYPICAL LYMPHOCYTE FLAG 0 (0-99); FRAGMENT RBC FLAG 0 (0-99); HEMATOCRIT 43.8 % (38.0-47.0); HEMOGLOBIN 14.5 g/dL (12.6-16.3); LEFT SHIFT FLG 20 (0-99); LIPEMIA HEMOLYSIS FLAG 80 (0-99); MEAN CELL HEMOGLOBIN 31.9 pg (27.9-34.1); MEAN CELL HEMOGLOBIN CONCENTR. 33.1 g/dL (32.4-36.7); MEAN CELL VOLUME 96.5 fL (81.5-99.8); MEAN PLATELET VOLUME 9.7 fL (8.7-11.7); PLATELET CLUMPS FLAG 0 (0-99); PLATELET COUNT 196 10^3/uL (150-400); RED BLOOD CELL COUNT 4.54 10^6/uL (4.18-5.33); RED CELL DISTRIBUTION WIDTH 13.1 % (11.5-15.2)
[2016-10-14 11:08] LABS: INR 1.48 (0.83-1.16); PROTIME(PATIENT) 17.9 SEC (12.0-15.0)
[2016-10-14 11:31] LABS: ANION GAP 11 mEq/L (8-16); CARBON DIOXIDE 22 mEq/l (22-31); CHLORIDE 105 mEq/L (97-110); CREATININE 0.8 mg/dL (0.6-1.0); GLOMERULAR FILTRATION RATE > 60; GLUCOSE 148 mg/dL (70-100); POTASSIUM 4.1 mEq/L (3.5-5.2); SODIUM 138 mEq/L (134-144)
[2016-10-14] MEDS ORDERED: IOPAMIDOL (ISOVUE 370) 100 ML BTL IV ONE (12:09)
--- NOTE | 2016-10-14 15:57 | SOAPPROG ---
SOAP Progress Note Assessment/Plan: Assessment: 86yo female with fever, wrist Fx Reviewed case with Dr Way who saw pt earlier today Patient has isolated wrist Fx from trauma standpoint. Follow up with Dr Sarmiento as instructed Trauma will sign off, call with any concerns. Plan: 10/14/16 15:56 Objective: Vital Signs Temp Pulse Resp BP Pulse Ox 36.8 C 82 22 H 110/56 L 90 L 10/14/16 15:32 10/14/16 15:32 10/14/16 15:32 10/14/16 15:32 10/14/16 15:32 Laboratory Results 10/14/16 10:38 10/14/16 10:38 10/13/16 10/14/16 10/15/16 05:59 05:59 05:59 Intake Total 550 1059 Output Total 100 50 Balance 450 1009 PT 17.9 SEC (12.0-15.0) H 10/14/16 10:38 INR 1.48 (0.83-1.16) H 10/14/16 10:38 ICD10 Worksheet Patient Problems: Problems Problem Status Onset Clavicle fracture Acute Distal end of ulna fracture, closed Acute Atrial fibrillation Acute Cellulitis of right upper extremity Acute Elevated troponin Acute Weakness generalized Acute
[2016-10-14] MEDS: DONEPEZIL HCL 5 MG TAB PO SCH (21:28)
[2016-10-14] MEDS: WARFARIN SODIUM 5 MG TAB PO SCH (21:28)
[2016-10-14] MEDS: ACETAMINOPHEN 325 MG TAB PO PRN (21:36)
[2016-10-15 06:19] LABS: % IMMATURE GRANULYOCYTES 0.5 % (0.0-1.1); ABSOLUTE IMMATURE GRANULOCYTES 0.03 10^3/uL (0.00-0.10); ADD DIFF? NO; ADD MORPH? NO; ADD SCAN? NO; ATYPICAL LYMPHOCYTE FLAG 0 (0-99); FRAGMENT RBC FLAG 0 (0-99); HEMOGLOBIN 13.7 g/dL (12.6-16.3); LEFT SHIFT FLG 10 (0-99); LIPEMIA HEMOLYSIS FLAG 80 (0-99); MEAN CELL HEMOGLOBIN 32.3 pg (27.9-34.1); MEAN CELL HEMOGLOBIN CONCENTR. 33.4 g/dL (32.4-36.7); MEAN CELL VOLUME 96.7 fL (81.5-99.8); MEAN PLATELET VOLUME 9.5 fL (8.7-11.7); PLATELET CLUMPS FLAG 0 (0-99); PLATELET COUNT 177 10^3/uL (150-400); RED BLOOD CELL COUNT 4.24 10^6/uL (4.18-5.33)
[2016-10-15 06:29] LABS: INR 1.53 (0.83-1.16); PROTIME(PATIENT) 18.4 SEC (12.0-15.0)
[2016-10-15 06:43] LABS: ANION GAP 6 mEq/L (8-16); CALCIUM 8.6 mg/dL (8.5-10.4); CARBON DIOXIDE 27 mEq/l (22-31); CHLORIDE 109 mEq/L (97-110); CREATININE 0.6 mg/dL (0.6-1.0); GLOMERULAR FILTRATION RATE > 60; GLUCOSE 81 mg/dL (70-100); POTASSIUM 4.1 mEq/L (3.5-5.2); SODIUM 142 mEq/L (134-144)
[2016-10-15] MEDS: MEMANTINE HCL 5 MG TAB PO SCH ×2 (09:36→21:33)
--- NOTE | 2016-10-15 13:42 | SOAPPROG ---
SOAP Progress Note Assessment/Plan: Assessment:Stable orthopedically Plan: Continue splint immobilization, mobilize. 10/15/16 13:40 Subjective: Very minimal pain in shoulder/ arm Objective: Minimal swelling. Distal n/v intact Vital Signs Temp Pulse Resp BP Pulse Ox 36.6 C 86 22 H 110/70 97 10/15/16 07:31 10/15/16 07:31 10/15/16 07:31 10/15/16 07:31 10/15/16 07:31 Laboratory Results 10/15/16 06:10 10/15/16 06:10 10/14/16 10/15/16 10/16/16 05:59 05:59 05:59 Intake Total 1059 976 Output Total 50 Balance 1009 976 PT 18.4 SEC (12.0-15.0) H 10/15/16 06:10 INR 1.53 (0.83-1.16) H 10/15/16 06:10 ICD10 Worksheet Patient Problems: Problems Problem Status Onset Clavicle fracture Acute Distal end of ulna fracture, closed Acute Atrial fibrillation Acute Cellulitis of right upper extremity Acute Elevated troponin Acute Weakness generalized Acute
[2016-10-15] MEDS ORDERED: FUROSEMIDE 20 MG/2 ML VIAL IVP ONE (14:45)
--- NOTE | 2016-10-15 14:48 | HOSPPROG ---
Hospitalist Progress Note Assessment/Plan: # fever - unclear source, resolved # fall/syncope - ppm interrogation neg, trops neg - cont tele, echo with severe TR, dilated atria # a-fib/ppm - on warfarin, rate controlled - subtherapeutic INR # R ulnar/clavicle fx - non-operative; NWB RUE; f/u Dr Sarmiento 10 days # dementia - home meds # chronic diastolic/valvular CHF # deconditioning/weakness - PT/OT - will need SNF # DNR ## cxr personally reviewed tele reviewed - paced CTA H&N reviewed Subjective: weak, poor decision making per RN and PT Objective: Vital Signs Temp Pulse Resp BP Pulse Ox 36.6 C 86 22 H 110/70 97 10/15/16 07:31 10/15/16 07:31 10/15/16 07:31 10/15/16 07:31 10/15/16 07:31 Laboratory Results 10/15/16 06:10 10/15/16 06:10 10/14/16 10/15/16 10/16/16 05:59 05:59 05:59 Intake Total 1059 976 Output Total 50 Balance 1009 976 PT 18.4 SEC (12.0-15.0) H 10/15/16 06:10 INR 1.53 (0.83-1.16) H 10/15/16 06:10 - Physical Exam Constitutional: no apparent distress, appears nourished Cardiovascular: regular rate and rhythym, systolic murmur, No irregularly irregular, No diastolic murmur Respiratory: no respiratory distress, no rales or rhonchi, clear to auscultation Gastrointestinal: normoactive bowel sounds, soft, non-tender abdomen, no palpable masses ICD10 Worksheet Patient Problems: Problems Problem Status Onset Cellulitis of right upper extremity Acute Weakness generalized Acute Atrial fibrillation Acute Elevated troponin Acute Clavicle fracture Acute Distal end of ulna fracture, closed Acute
[2016-10-15] MEDS ORDERED: WARFARIN SODIUM 5 MG TAB PO SCH (18:00)
[2016-10-15] MEDS: ACETAMINOPHEN 325 MG TAB PO PRN (21:33)
[2016-10-15] MEDS: DONEPEZIL HCL 5 MG TAB PO SCH (21:33)
[2016-10-16 06:38] LABS: INR 1.64 (0.83-1.16); PROTIME(PATIENT) 19.5 SEC (12.0-15.0)
[2016-10-16 07:30] VITALS: BP 128/73; PULSE 78; RESP 18; TEMP 97.7; O2SAT 97
[2016-10-16] MEDS: MEMANTINE HCL 5 MG TAB PO SCH (09:48)
--- NOTE | 2016-10-16 11:07 | PDIAF ---
- Diagnosis Diagnosis: fall, possible syncope Code Status: Do Not Resuscitate - Medication Management Discharge Medications: Medications to Continue on Transfer Cholecalciferol Vit D3 [Vitamin D3 (*)] 1,000 units PO DAILY 11/01/12 [Last Taken 10/11/16] Warfarin Sodium [Coumadin 5MG (*)] 2.5 mg PO WESA@18 11/01/12 [Last Taken ] Warfarin Sodium [Coumadin 5MG (*)] 5 mg PO SUMOTUTHFR@18 11/01/12 [Last Taken ] Memantine HCl [Namenda 5 mg (*)] 10 mg PO DAILY 08/07/15 [Last Taken 10/11/16] Multivitamins [Multivitamin (*)] 1 each PO DAILY 08/07/15 [Last Taken 10/11/16] Donepezil HCl [Aricept] 10 mg PO HS 02/21/16 [Last Taken 10/11/16] Discharge Medications: Refer to the Discharge Home Medication list for PRN reason. - Orders Services needed: Registered Nurse, Certified [employer], Physical Therapy, Occupational Therapy, Speech Language Pathologist Diet Recommendation: no restrictions on diet Activity/Weight Bearing Restrictions: NWB RUE until cleared by Dr Sarmiento - Labs/Radiology PT/INR Date: 10/18/16 (QOD intil INR stable) - Follow Up Care Current Providers and Referrals: Patient,NotPresent [Unknown] - As per Instructions Manuel Sarmiento MD [Medical Doctor] - (Pt is to follow up w/ Dr. Sarmiento 10-14 days post injury, or sooner with any additional concerns or complaints. She is encouraged to contact the office as soon as possible to schedule this appointment.)
--- NOTE | 2016-10-16 11:22 | GDS ---
[f rep st] DISCHARGE SUMMARY ALL DIAGNOSES: 1. Fall versus syncope. 2. Right ulnar fracture and right clavicle fracture, nonoperative. 3. Atrial fibrillation, status post pacemaker. 4. Dementia. 5. Chronic diastolic and valvular congestive heart failure. 6. Deconditioning and weakness. HOSPITAL COURSE: This is an 86-year-old female, who presented after a fall on her stairs. She does not really remember the event. It is unclear if this represents a mechanical fall or syncopal epis ode. She sustained a fracture to her right ulna as well as her right clavicle. Seen by Dr. Sarmiento, who felt that these fractures were nonoperative. He recommended a sling as well as nonweightbearing until cleared by him. She has already a followup appointment in place with him. In terms of syncopal workup, nothing was very clear. She underwent an echocardiogram, which did not show any significant change from her prior. She does have some valvular and chronic diastolic dysf unction. She was monitored on telemetry; however, she is mostly paced and had no significant arrhyt hmias. Her pacemaker was also interrogated, which showed no arrhythmias at the time of the fall. In terms of her AFib, she has been rate controlled. She is anticoagulated on warfarin. She is slig htly subtherapeutic with an INR of 1.68 on the day of discharge. I have written to recheck that in 2 days. These should be followed until she is stable on her warfarin. Deconditioning: She had previously been taken care of by her roommate for most of her ADLs prior to this hospitalization. She seems quite deconditioned, which is likely, unfortunately, her baseline. She will need to undergo additional physical therapy and occupational therapy while at skilled [facility]. She has a history of a left eye droop. I am not sure of the chronicity of this, though CT of the he ad as well as CT angio of the head and neck showed no real etiologies for this. She is unable to un dergo an MRI given her pacemaker. BILLING: I spent more than 30 minutes on the day of discharge coordinating care. /[id number]/MODL
== END 2016-10-16 13:58 | DRG 563 ==
LOC: EDUNIT# → OBSVTOIN 20:59 → F2N 22:17
PROVIDERS: ADMIT Surgery; ATTEND Surgery
DX: S42.031A Displaced fracture of lateral end of right clavicle, initial encounter for closed fracture (principal); S52.601A Unspecified fracture of lower end of right ulna, initial encounter for closed fracture; I50.32 Chronic diastolic (congestive) heart failure; F03.90 Unspecified dementia, unspecified severity, without behavioral disturbance, psychotic disturbance, mood disturbance, and anxiety; I27.2 Other secondary pulmonary hypertension; W10.8XXA Fall (on) (from) other stairs and steps, initial encounter; Y92.018 Other place in single-family (private) house as the place of occurrence of the external cause; Z66 Do not resuscitate; Z95.810 Presence of automatic (implantable) cardiac defibrillator; Z79.01 Long term (current) use of anticoagulants; Z87.891 Personal history of nicotine dependence
CPT/HCPCS: 82607-90; 92523-GN; 97116-GP; 97162-GP; 97165-GO; 97530-GO; 97530-GP; 97535-GO; A4565; G0008; G8978-GP-CL; G8979-GP-CK; G8987-GO-CM; G8988-GO-CK; G9165-GN-CI; G9166-GN-CI; G9167-GN-CI; Q9967